=== PATIENT | male | born 1955 | race Caucasian/White ===

== ENCOUNTER 2022-11-28 06:34 | Day surgery (SDC) | payer MEDICARE, MEDICAID ==
[~2022-11-28] VITALS: Ht 167.6 cm; Wt 72.6 kg
[2022-11-28] MEDS ORDERED: MEPERIDINE 100 MG INJ. 100 MG/ML VIAL ONE (07:26)
[2022-11-28] MEDS ORDERED: SIMETHICONE 40 MG/0.6 ML ML ONE (07:26)
[2022-11-28] MEDS ORDERED: MIDAZOLAM HCL 5 MG/5 ML VIAL ONE (07:26)
[2022-11-28 09:01] VITALS: O2SAT 94
[2022-11-28 15:14] VITALS: BP_SYST 126; PULSE 58; RESP 17; TEMP 97.7
== END 2022-11-28 10:30 | disposition home or self-care (01) ==
LOC: SDS 06:34 → SMU 07:03 → SDS 10:30
PROVIDERS: ATTEND Internal Medicine Gastroenterology
DX: R19.5 Other fecal abnormalities (principal); D12.2 Benign neoplasm of ascending colon; D12.3 Benign neoplasm of transverse colon; D12.5 Benign neoplasm of sigmoid colon; K64.8 Other hemorrhoids
CPT/HCPCS: 45380; 45385; 99152; 88305; 99153; G0378; J2250; J2175; 45384